=== PATIENT | male | born 1985 | race Caucasian/White ===

== ENCOUNTER 2017-10-20 21:32 | Emergency (ER) | payer OTHER ==
[~2017-10-20] VITALS: Ht 185.4 cm; Wt 119.7 kg
[~2017-10-20 21:32] MED LIST: AUGMENTIN875 MG PO; EFFEXOR37.5 MG; FLEXERIL10 MG PO; MOTRIN800 MG PO; NAPROSYN500 MG PO; NAPROXEN500 MG PO; NO HOME MEDS; PREDNISONE10 MG PO; PRILOSEC40 MG; TRAZODONE HCL100 MG PO; ULTRAM50 MG PO; VALIUM5 MG PO; XANAX1 MG PO; Xanax PO
[2017-10-21 01:11] LABS: BASOPHIL (%) 0.4 % (0-1); BASOPHIL COUNT 0.1 K/uL (0-0.1); EOSINOPHIL (%) 1.6 % (0-5); EOSINOPHIL COUNT 0.2 K/uL (0-0.3); HEMATOCRIT 45.6 % (38.0-50.0); IMMATURE GRANULOCYTE (%) 0.2 % (0.0-0.7); LYMPHOCYTE (%) 23.9 % (15-42); LYMPHOCYTE COUNT 3.3 K/uL (1.0-2.8); MCH 27.5 PG (29.0-34.0); MCHC 32.9 G/DL (30.0-36.0); MCV 83.5 FL (86-99); MONOCYTE (%) 5.8 % (3-12); MONOCYTE COUNT 0.8 K/uL (0-0.8); NEUTROPHIL (%) 68.1 % (45-76); NEUTROPHIL COUNT 9.4 K/uL (1.8-6.4); PLATELET COUNT 255 K/uL (156-360); RBC DIS.WIDTH-CV 14.3 % (11.8-14.6); RED BLOOD COUNT 5.46 M/uL (4.00-5.50); WHITE BLOOD COUNT 13.7 K/uL (4.1-10.2)
[2017-10-21 01:20] LABS: CHLORIDE 107 mEq/L (99-109); POTASSIUM 3.4 mEq/L (3.7-5.4); SODIUM 139 mEq/L (136-147)
[2017-10-21 01:22] LABS: GLUCOSE 128 mg/dL (70-99)
[2017-10-21 01:26] LABS: CREATININE 0.9 mg/dL (0.6-1.3); GFR ESTIMATE (CALCULATED) > 59 mL/min/ (58.99-99999)
[2017-10-21 01:27] LABS: UREA NITROGEN (BUN) 6 mg/dL (9-23)
[2017-10-21 03:23] LABS: APPEARANCE CLEAR ((CLEAR)); BILIRUBIN NEGATIVE; BLOOD NEGATIVE; COLOR YELLOW ((YELLOW)); GLUCOSE (STRIP) NEGATIVE; KETONES NEGATIVE; LEUKOCYTES NEGATIVE; NITRITE NEGATIVE; PROTEIN (STRIP) NEGATIVE; SPECIFIC GRAVITY 1.013 (1.000-1.030); UROBILINOGEN 0.2 MG/DL (0.2-1.0)
[2017-10-21 04:11] VITALS: BP 129/88
== END 2017-10-21 04:18 | disposition home or self-care (01) ==
LOC: EME 21:32
PROVIDERS: Physician Assistant
DX: M54.9 Dorsalgia, unspecified (principal); R10.9 Unspecified abdominal pain; Z59.0 Homelessness; F17.200 Nicotine dependence, unspecified, uncomplicated; F90.9 Attention-deficit hyperactivity disorder, unspecified type; Z88.6 Allergy status to analgesic agent
CPT/HCPCS: 74176; 80048; 81003; 85025; 99281; 99283

== ENCOUNTER 2017-10-26 05:34 | Emergency (ER) | payer OTHER ==
[~2017-10-26] VITALS: Ht 185.4 cm; Wt 116.4 kg
[2017-10-26] MEDS ORDERED: ZOFRAN4 MG PO (08:50)
[2017-10-26 09:05] VITALS: BP 113/76
[2017-10-27] MEDS ORDERED: TESSALON PERLE100 MG PO (11:40)
== END 2017-10-26 09:09 | disposition home or self-care (01) ==
LOC: EME 05:34
DX: R11.2 Nausea with vomiting, unspecified (principal); R19.7 Diarrhea, unspecified; F90.9 Attention-deficit hyperactivity disorder, unspecified type; F42.9 Obsessive-compulsive disorder, unspecified; F41.9 Anxiety disorder, unspecified; F32.9 Major depressive disorder, single episode, unspecified; F31.9 Bipolar disorder, unspecified; Z87.442 Personal history of urinary calculi; F17.210 Nicotine dependence, cigarettes, uncomplicated; Z88.6 Allergy status to analgesic agent
CPT/HCPCS: 99281; 99284

== ENCOUNTER 2017-10-27 08:01 | Emergency (ER) | payer OTHER ==
[~2017-10-27] VITALS: Ht 185.4 cm; Wt 117.8 kg
[~2017-10-27 08:01] MED LIST changes: +ZOFRAN4 MG PO
[2017-10-27] MEDS ORDERED: TESSALON PERLE100 MG PO (11:40)
[2017-10-27 12:01] VITALS: BP 123/89
== END 2017-10-27 12:01 | disposition home or self-care (01) ==
LOC: EME 08:01
DX: J06.9 Acute upper respiratory infection, unspecified (principal); F17.200 Nicotine dependence, unspecified, uncomplicated
CPT/HCPCS: 87651 90; 99281; 99284

== ENCOUNTER 2017-10-30 08:35 | Emergency (ER) | payer OTHER ==
[~2017-10-30] VITALS: Ht 185.4 cm; Wt 128.2 kg
[~2017-10-30 08:35] MED LIST changes: +TESSALON PERLE100 MG PO
[2017-10-30] MEDS ORDERED: TESSALON200 MG PO (10:52)
[2017-10-30 11:43] VITALS: BP 105/63
== END 2017-10-30 11:44 | disposition home or self-care (01) ==
LOC: EME 08:35
DX: J06.9 Acute upper respiratory infection, unspecified (principal); F90.9 Attention-deficit hyperactivity disorder, unspecified type; F32.9 Major depressive disorder, single episode, unspecified; F41.9 Anxiety disorder, unspecified; F31.9 Bipolar disorder, unspecified; F42.9 Obsessive-compulsive disorder, unspecified; F17.200 Nicotine dependence, unspecified, uncomplicated; Z87.442 Personal history of urinary calculi; Z88.6 Allergy status to analgesic agent
CPT/HCPCS: 71046; 99281; 99284

== ENCOUNTER 2017-10-31 07:41 | Inpatient (IN) | payer OTHER ==
[~2017-10-31] VITALS: Ht 185.4 cm; Wt 112.6 kg
[~2017-10-31 07:41] MED LIST changes: +TESSALON200 MG PO
[2017-10-31 10:06] LABS: HEMATOCRIT 41.2 % (38.0-50.0); HEMOGLOBIN 13.7 G/DL (12.5-16.6); MCH 27.2 PG (29.0-34.0); MCHC 33.3 G/DL (30.0-36.0); MCV 81.7 FL (86-99); RBC DIS.WIDTH-CV 14.5 % (11.8-14.6); RBC DIS.WIDTH-SD 42.9 % (39-53); RED BLOOD COUNT 5.04 M/uL (4.00-5.50); WHITE BLOOD COUNT 7.7 K/uL (4.1-10.2)
[2017-10-31 10:16] LABS: ALBUMIN 3.4 g/dL (3.2-4.8)
[2017-10-31 10:17] LABS: CHLORIDE 105 mEq/L (99-109); POTASSIUM 3.8 mEq/L (3.7-5.4); SODIUM 139 mEq/L (136-147)
[2017-10-31 10:19] LABS: GLUCOSE 102 mg/dL (70-99); TOTAL PROTEIN 5.5 g/dL (6.4-8.3)
[2017-10-31 10:21] LABS: TOTAL BILIRUBIN 0.2 mg/dL (0.0-1.0)
[2017-10-31 10:22] LABS: ALKALINE PHOSPHATASE 72 IU/L (3-129); BASOPHIL (%) 0.1 % (0-1); EOSINOPHIL (%) 0 % (0-5); IMMATURE GRANULOCYTE (%) 0.5 % (0.0-0.7); LYMPHOCYTE (%) 9.2 % (15-42); LYMPHOCYTE COUNT 0.7 K/uL (1.0-2.8); MONOCYTE (%) 3.6 % (3-12); MONOCYTE COUNT 0.3 K/uL (0-0.8); NEUTROPHIL (%) 86.6 % (45-76); NEUTROPHIL COUNT 6.7 K/uL (1.8-6.4)
[2017-10-31 10:23] LABS: CREATININE 0.8 mg/dL (0.6-1.3); GFR ESTIMATE (CALCULATED) > 59 mL/min/ (58.99-99999)
[2017-10-31 10:24] LABS: UREA NITROGEN (BUN) 9 mg/dL (9-23)
[2017-10-31 10:25] LABS: ALT (GPT) 37 IU/L (3-49); AST (GOT) 36 IU/L (2-34); TROP-I INTERPRETATION NEGATIVE; TROPONIN-I 0.01 ng/mL (0.0-0.30)
[2017-10-31 10:41] LABS: PLAT.SUFFICIENCY DECREASED
[2017-10-31 10:43] LABS: PLATELET COUNT 136 K/uL (156-360)
[2017-10-31 15:45] VITALS: BP 108/58
[2017-10-31 20:11] VITALS: BP 123/61
[2017-11-01 04:29] VITALS: BP 128/72
[2017-11-01 06:13] LABS: HEMATOCRIT 42.8 % (38.0-50.0); HEMOGLOBIN 13.9 G/DL (12.5-16.6); MCH 26.7 PG (29.0-34.0); MCHC 32.5 G/DL (30.0-36.0); MCV 82.1 FL (86-99); RBC DIS.WIDTH-CV 14.5 % (11.8-14.6); RBC DIS.WIDTH-SD 43.7 % (39-53); RED BLOOD COUNT 5.21 M/uL (4.00-5.50); WHITE BLOOD COUNT 7.3 K/uL (4.1-10.2)
[2017-11-01 06:17] LABS: PLATELET COUNT 185 K/uL (156-360)
[2017-11-01 07:02] LABS: CHLORIDE 107 MEQ/L (99-109); CREATININE 0.7 MG/DL (0.6-1.3); GFR ESTIMATE (CALCULATED) > 59 mL/min/ (58.99-99999); GLUCOSE 125 mg/dL (70-99); POTASSIUM 3.7 MEQ/L (3.7-5.4); SODIUM 142 MEQ/L (136-147); UREA NITROGEN (BUN) 11 mg/dL (9-23)
[2017-11-01 09:45] VITALS: BP 120/64
[2017-11-01] MEDS ORDERED: PROAIR HFA8.5 GM IH (15:05)
[2017-11-01] MEDS ORDERED: CEFTIN500 MG PO (15:05)
[2017-11-01] MEDS ORDERED: NICOTINE PATCH1 EAC1 TD (15:05)
[2017-11-01] MEDS ORDERED: AZITHROMYCIN500 M1 PO (15:05)
[2017-11-01] MEDS ORDERED: OSELTAMIVIR PHO75 MG PO (15:05)
[2017-11-01 16:00] VITALS: BP 118/61
== END 2017-11-01 18:57 | DRG 193 ==
LOC: EME → EDBD 07:41 → EME 07:41 → EDOF 11:38 → ENRESERV 11:50 → 5EAST 14:05
PROVIDERS: Emergency Medicine; Physician Assistant Medical
DX: J10.08 Influenza due to other identified influenza virus with other specified pneumonia (principal); J44.0 Chronic obstructive pulmonary disease with (acute) lower respiratory infection; J15.9 Unspecified bacterial pneumonia; J10.1 Influenza due to other identified influenza virus with other respiratory manifestations; J96.01 Acute respiratory failure with hypoxia; F31.9 Bipolar disorder, unspecified; F17.200 Nicotine dependence, unspecified, uncomplicated; F41.9 Anxiety disorder, unspecified; F90.9 Attention-deficit hyperactivity disorder, unspecified type; F42.9 Obsessive-compulsive disorder, unspecified; K21.9 Gastro-esophageal reflux disease without esophagitis; Z59.0 Homelessness
CPT/HCPCS: 71250; 71275; 80048; 80053; 83605; 84484; 85025; 85027; 85379; 87040; 87502; 93005; 94640; 94640 76; 99202; J0696; J1100; J1650; J1956; J7030; J7644

== ENCOUNTER 2017-11-03 00:54 | Emergency (ER) | payer OTHER ==
[~2017-11-03] VITALS: Ht 182.9 cm; Wt 114.4 kg
[~2017-11-03 00:54] MED LIST changes: +AZITHROMYCIN500 M1 PO; +CEFTIN500 MG PO; +NICOTINE PATCH1 EAC1 TD; +OSELTAMIVIR PHO75 MG PO; +PROAIR HFA8.5 GM IH
[2017-11-03] MEDS ORDERED: MEDROL DOSEPAK4 MG PO (05:15)
[2017-11-03] MEDS ORDERED: VALIUM5 MG PO (05:15)
[2017-11-03 05:49] VITALS: BP 111/70
[2017-11-04] MEDS ORDERED: ROBITUSSIN AC,T10 ML PO (07:51)
[2017-11-04] MEDS ORDERED: ZITHROMAX Z-PA250 MG PO (07:51)
== END 2017-11-03 05:49 | disposition home or self-care (01) ==
LOC: EME 00:54
DX: M62.830 Muscle spasm of back (principal); Z88.6 Allergy status to analgesic agent

== ENCOUNTER 2017-11-04 03:19 | Emergency (ER) | payer OTHER ==
[~2017-11-04] VITALS: Ht 182.9 cm; Wt 129.5 kg
[~2017-11-04 03:19] MED LIST changes: +MEDROL DOSEPAK4 MG PO
[2017-11-04 04:14] LABS: HEMATOCRIT 43.4 % (38.0-50.0); HEMOGLOBIN 14.2 G/DL (12.5-16.6); MCH 27.4 PG (29.0-34.0); MCHC 32.7 G/DL (30.0-36.0); MCV 83.6 FL (86-99); RBC DIS.WIDTH-CV 14.6 % (11.8-14.6); RBC DIS.WIDTH-SD 44.4 % (39-53); RED BLOOD COUNT 5.19 M/uL (4.00-5.50); WHITE BLOOD COUNT 7.6 K/uL (4.1-10.2)
[2017-11-04 04:15] LABS: PLATELET COUNT 256 K/uL (156-360)
[2017-11-04 04:24] LABS: CHLORIDE 103 mEq/L (99-109); POTASSIUM 3.8 mEq/L (3.7-5.4); SODIUM 137 mEq/L (136-147)
[2017-11-04 04:26] LABS: GLUCOSE 107 mg/dL (70-99)
[2017-11-04 04:30] LABS: CREATININE 0.8 mg/dL (0.6-1.3); GFR ESTIMATE (CALCULATED) > 59 mL/min/ (58.99-99999)
[2017-11-04 04:31] LABS: UREA NITROGEN (BUN) 12 mg/dL (9-23)
[2017-11-04 07:07] VITALS: BP 101/60
[2017-11-04] MEDS ORDERED: ROBITUSSIN AC,T10 ML PO (07:51)
[2017-11-04] MEDS ORDERED: ZITHROMAX Z-PA250 MG PO (07:51)
== END 2017-11-04 08:34 | disposition home or self-care (01) ==
LOC: EME 03:19
DX: J20.9 Acute bronchitis, unspecified (principal); F90.9 Attention-deficit hyperactivity disorder, unspecified type; F41.9 Anxiety disorder, unspecified; F32.9 Major depressive disorder, single episode, unspecified; F31.9 Bipolar disorder, unspecified; F79 Unspecified intellectual disabilities; F42.9 Obsessive-compulsive disorder, unspecified; F17.200 Nicotine dependence, unspecified, uncomplicated; Z87.442 Personal history of urinary calculi; Z88.6 Allergy status to analgesic agent
CPT/HCPCS: 71046; 80048; 85027